=== PATIENT | female | born 1955 | race Caucasian/White ===

== ENCOUNTER 2025-08-29 12:13 | Emergency (ER) | payer OTHER, MEDICARE, SELFPAY ==
[2025-08-29 12:20] VITALS: BP 127/78
--- NOTE | 2025-08-29 15:27 | EDRN ---
Patient refused the Velcro wrist splint
--- NOTE | 2025-08-29 19:19 | ED.GENMED ---
History of Present Illness
General
Chief Complaint: Fall
Source: patient
Exam Limitations: none
Time Seen by Provider: 08/29/25 14:29
Nursing documentation reviewed up to this point in time: agreed with
History of Present Illness
History of Present Illness:
Patient is a 70-year-old healthy female who presents to the emergency department with headache and right wrist pain after mechanical fall last night. Patient states that she slipped on black ice in her driveway falling down striking her head on the
cement. She denies any LOC. Patient thinks she may have braced with her right hand as she is having some mild discomfort in her right wrist. Patient states that following the fall last night she was very tired and chose to go to bed.
However�this morning she had a persistent frontal headache and mild neck pain prompting evaluation in the emergency department.
She states she feels 'foggy' in her head although denies any nausea or episodes of vomiting. No dizziness, lightheadedness, or ataxia. She denies any back, chest, or abdominal pain. No numbness/tingling or weakness in lower extremities.
Patient is not on any oral anticoagulation.
Past History
Past History
ED Past Medical History: Other (Lupus)
ED Past Surgical History: None
Social History
Tobacco: Non-smoker
Alcohol: None
Drug: None
Personal:
Living: with family
Employment: Employed
Family History
Family History: Other (n/c)
Review of Systems
Review of Systems
Allergies reviewed?: Yes
All Other Systems: ROS reviewed and negative except as documented in HPI and ROS
Phy Exam
Physical Exam
Physical Exam:
GENERAL: No acute distress
HEENT: atraumatic, extraocular muscles intact, no signs of entrapment, dentition intact, no other obvious trauma
NECK: mild tenderness across upper trapezius/lateral neck bilaterally without midline tenderness. No other obvious trauma
BACK: no midline tenderness, no other obvious trauma
CHEST: no tenderness, no flail segment, no subcutaneous emphysema, no other obvious trauma
LUNGS: clear to auscultation bilaterally
CARDIOVASCULAR: regular rate and rhythm
ABDOMEN: soft, non-tender, no masses, no other obvious trauma
PELVIS: stable, no obvious injury
EXTREMITIES: Small ecchymoses and mild edema of right wrist. Area of focal tenderness at ulnar aspect. Some pain with range of motion of right wrist. No tenderness of anatomical snuffbox. Right lower extremity without any bony tenderness or
evidence of traumatic injury. Bilateral upper and lower extremities neurovascular intact.
NEUROLOGIC: awake, alert x 3, no focal deficits
Course
Orders/Labs/Results
Orders:
Orders
08/29/25 12:24
CT Cervical Spine W/o Iv Contr Urgent
Comment:
Reason For Exam: fall
CT Head W/o Iv Contrast Urgent
Comment:
Reason For Exam: fall
CR Wrist - Right Min 3 Views Urgent
Comment:
Reason For Exam: fall
08/29/25 15:07
Splints/Slings/Crut- Treatment ONCE
Location: Right
Type of Splint: [place] Wrist
Vital Signs
Initial and Last Documented VS:
Initial Vital Signs
Temp Pulse Resp BP Pulse Ox
97.5 F 74 18 127/78 99
08/29/25 12:20 08/29/25 12:20 08/29/25 12:20 08/29/25 12:20 08/29/25 12:20
Last Documented Vital Signs
Temp Pulse Resp BP Pulse Ox
97.5 F 74 18 127/78 99
08/29/25 12:20 08/29/25 12:20 08/29/25 12:20 08/29/25 12:20 08/29/25 19:19
MDM/Problems Addressed
Differential Diagnosis Includes:
Not limited to: Concussion, intracranial bleeding, cervical spine fracture, cervical muscle strain, wrist fracture/sprain, etc.
MDM/Problems Addressed:
70-year-old female persistent headache/brain fog and neck discomfort after slip and fall on ice yesterday. No LOC. Also reports mild pain/swelling in right wrist and mild pain in right foot. No oral anticoagulation. Vital stable. Physical exam
as above.
Prior to my evaluation, CT imaging of head and cervical spine were obtained which shows no evidence of intracranial bleeding or cervical spine fracture. Suspect mild concussion and neck sprain. An x-ray of the right wrist was also obtained, which
does not show any evidence of acute fracture. Her only area of tenderness is on the ulnar aspect�do not suspect occult fracture. She is reporting mild pain like with ambulating however there is no obvious abnormality or focal area of tenderness on
exam. I did offer patient x-ray of right foot however she declines. Low suspicion for fracture as patient has no reproducible tenderness and is ambulating without difficulty.
Will place patient in volar splint and advised outpatient orthopedic follow-up. Discussed concussion and expectant management at home. She will follow-up primary care. Return precautions discussed. Stable for discharge home
Chronic conditions affecting care:
N/A
Acute Exacerbation and/or Progression of Chronic Illness:
N/A
*Radiology
Radiology exam reviewed: radiology read reviewed
*Pulse Oximetry
SaO2: 99
Oxygen Mode of Delivery: Room air
Patient hypoxic: no
*EKG
Interpreted by ED Provider?: NA
*Combustion Analyst Interpretation
Rate: Combustion Analyst- N/A
*Critical Care Note
Total Time (30-74mins, 75-104mins- exclusive of procedures): Not Applicable
ED Attending Note
-
Portions of this chart may have been created with voice recognition software.� Occasional wrong word or��sound alike� substitutions may have occurred due to the inherent limitations of voice recognition software.
Discharge Plan
Departure
Patient Disposition: Home (Routine Discharge)
Date of Disposition: 08/29/25
Time of Disposition: 15:18
Patient with high blood pressure during this ER visit?: No
Condition: Good
Discharge Problem:
Fall, Concussion, Cervical muscle strain, Wrist pain, right
Instructions: Concussion, Adult (DC), Cervical Sprain ED
Prescriptions:
No Action
prednisone 10 MG tablet
10 mg PO .TAPER Qty: 63 0RF
Rx Instructions:
Take 55bnw0krdx, 10jsr1mjov, 03vhx5yolt, 61zyi0ekah.
amoxicillin-pot clavulanate 1 TABLET tablet
1 tab PO Q12 Qty: 20 0RF
Referrals:
Zeus Roman MD [Active, Orthopedics]
Stand Alone Forms: Return to Work
Activity Restrictions/Additional Instructions:
RETURN TO THE EMERGENCY DEPARTMENT WITH ANY SEVERE HEADACHE OR NECK PAIN, INTRACTABLE VOMITING, VISUAL CHANGES OR PERSISTENT DIZZINESS, CHANGES IN MENTAL STATUS, NUMBNESS/TINGLING OR WEAKNESS IN EXTREMITIES, OR ANY OTHER CONCERNS
- As discussed�your imaging showed no evidence of cervical spine fracture or bleeding in the brain. There is no evidence of a wrist fracture.
- You likely sustained a concussion and a cervical muscle strain.
- Please continue to take Tylenol and/or Motrin as needed for pain. Wear wrist splint and apply ice.
- Follow-up with primary care for further evaluation/management to ensure that your symptoms are improving
Monitor your symptoms closely and return to the emergency department with any acute worsening/new symptoms or any other concerns
Interventions
Interventions:
*General Assessment Last Done: 08/29/25 12:20
*Neglect/Abuse Screening Last Done: 08/29/25 12:20
*ED COVID-19 Vaccine History Last Done: 08/29/25 12:20
*ED Influenza Vaccine History Last Done: 08/29/25 12:20
*Risk Screen - Suicide (C-SSRS) Last Done: 08/29/25 12:20
*Nursing Disposition Last Done: 08/29/25 14:25
ED-Musculoskeletal Assessment Last Done: 08/29/25 15:14
ED- Neurological Assessment Last Done: 08/29/25 15:14
Discharge Date and Time
Discharge Date/Time: 08/29/25 15:23
Print Language: STATELESS
== END 2025-08-29 15:23 | disposition home or self-care (01) ==
LOC: EMR 12:13
PROVIDERS: EMERGENCY PHYSICIAN Emergency Medicine; FAMILY PHYSICIAN Family Medicine
DX: S06.0X0A Concussion without loss of consciousness, initial encounter (principal); S16.1XXA Strain of muscle, fascia and tendon at neck level, initial encounter; M25.531 Pain in right wrist; W00.0XXA Fall on same level due to ice and snow, initial encounter; Y92.008 Other place in unspecified non-institutional (private) residence as the place of occurrence of the external cause; M32.9 Systemic lupus erythematosus, unspecified
CPT/HCPCS: 99284; 29125; 70450; 72125; 73110